=== PATIENT | female | born 1995 | race African-American/Black ===

== ENCOUNTER 2020-06-05 14:06 | Emergency (ER) | payer MEDICAID ==
[~2020-06-05] VITALS: Ht 154.9 cm; Wt 48.5 kg
[2020-06-05] MEDS ORDERED: KETOROLAC TROMETHAMINE 30 MG/ML VIAL IM STA (14:47)
== END 2020-06-05 16:27 | disposition home or self-care (01) ==
LOC: ER 14:47
DX: M25.561 Pain in right knee (principal)
CPT/HCPCS: 73562; 99283; J1885

== ENCOUNTER 2022-09-28 17:56 | Emergency (ER) | payer BC, MEDICAID ==
[~2022-09-28] VITALS: Ht 154.9 cm; Wt 48.5 kg
[2022-09-28 18:17] VITALS: O2SAT 100
[2022-09-28] MEDS ORDERED: MEDROL4 M2 PO (18:55)
[2022-09-28] MEDS ORDERED: METHOCARBAMOL750 MG PO (18:55)
[2022-09-29] MEDS ORDERED: REGLAN10 MG PO (08:47)
== END 2022-09-28 19:05 | disposition home or self-care (01) ==
LOC: ER 18:10
DX: M46.1 Sacroiliitis, not elsewhere classified (principal); M54.50 Low back pain, unspecified
CPT/HCPCS: 99282

== ENCOUNTER 2022-09-29 06:03 | Emergency (ER) | payer BC ==
[~2022-09-29] VITALS: Ht 154.9 cm; Wt 48.5 kg
[~2022-09-29 06:03] MED LIST: MEDROL4 M2 PO; METHOCARBAMOL750 MG PO
[2022-09-29 06:39] VITALS: O2SAT 100
[2022-09-29 07:08] LABS: BASOPHILS % 0.2 % (0.0-1.0); EOSINOPHILS % 0.1 % (0.0-6.0); HEMATOCRIT 37.9 % (34.2-44.1); HEMOGLOBIN 12.7 g/dL (12.0-16.0); LYMPHOCYTES # (AUTO) 0.7 (1.0-3.2); MEAN CORPUSCULAR HEMOGLOBIN 29.1 pg (28-32); MEAN CORPUSCULAR HGB CONC 33.5 g/dL (31-35); MEAN CORPUSCULAR VOLUME 86.9 fL (81-99); MONOCYTES # (AUTO) 0.4 (0.2-0.8); MONOCYTES % 3.5 % (4.4-11.3); NEUTROPHILS # (AUTO) 8.9 (2.1-6.9); NEUTROPHILS % 88.9 % (38.7-80.0); PLATELET COUNT 300 x10e3/uL (140-360); RED BLOOD COUNT 4.36 x10e6/uL (3.6-5.1); RED CELL DISTRIBUTION WIDTH 12.5 % (11.7-14.4)
[2022-09-29 07:18] LABS: CLARITY,URINE CLOUDY (CLEAR); COLOR,URINE YELLOW (YELLOW); KETONES,URINE 1+ (NEGATIVE); LEUKOCYTE ESTERASE ,URINE SMALL (NEGATIVE); NITRITE,URINE NEGATIVE (NEGATIVE); PROTEIN,URINE DIPSTICK 1+ (NEGATIVE); URINE UROBILINOGEN 0.2 mg/dL (0.2 - 1)
[2022-09-29 07:28] LABS: ALBUMIN/GLOBULIN RATIO 1.1 (0.8-2.0); ANION GAP 13.7 mmol/L (8-16); CALCIUM 9.6 mg/dL (8.4-10.2); CREATININE, SERUM 1.19 mg/dL (0.57-1.11); POTASSIUM 3.7 mmol/L (3.5-5.1)
[2022-09-29 07:29] LABS: EPITHELIAL CELLS,URINE MANY /LPF
[2022-09-29 07:30] LABS: RBC,URINE 0-5 /HPF (0-5); WBC,URINE (MAN) 21-50 /HPF (0-5)
[2022-09-29 07:31] LABS: BACTERIA,URINE MODERATE /HPF
[2022-09-29] MEDS ORDERED: DIPHENHYDRAMINE HCL INJ 50 MG/ML VIAL IV ONE (07:45)
[2022-09-29] MEDS ORDERED: LACTATED RINGER'S 1,000 ML IV ONE (07:45)
[2022-09-29] MEDS ORDERED: METOCLOPRAMIDE HCL 10 MG/2ML VIAL IV ONE (07:45)
[2022-09-29] MEDS ORDERED: REGLAN10 MG PO (08:47)
== END 2022-09-29 09:38 | disposition home or self-care (01) ==
LOC: ER 06:15
DX: R11.2 Nausea with vomiting, unspecified (principal); N39.0 Urinary tract infection, site not specified; E86.0 Dehydration
CPT/HCPCS: 36415; 80053; 81001; 81025; 83690; 85025; 87086; 99284; J0696; J1200; J2765; J7121